=== PATIENT | male | born 1995 | race Caucasian/White ===

== ENCOUNTER 2017-07-06 00:08 | Emergency (ER) | payer OTHER ==
[~2017-07-06] VITALS: Ht 185.4 cm; Wt 106.6 kg
[~2017-07-06 00:08] MED LIST: ANAPROX DS550 MG PO; CEPHALEXIN500 M1 PO; FLEXERIL10 MG PO; KEFLEX500 MG PO; MOTRIN800 MG PO; NKHM; NORCO 5-325 TA1 EACH PO; PEN-VEE K500 MG PO; PREDNISONE10 MG PO; ROBITUSSIN AC 110 ML PO; ULTRAM50 MG PO; VENTOLIN H0.09 MG/AC INH
[2017-07-06] MEDS ORDERED: IBU800 MG PO (01:13)
== END 2017-07-06 01:24 | disposition home or self-care (01) ==
LOC: ED 00:08
DX: R07.81 Pleurodynia (principal); Z79.899 Other long term (current) drug therapy; X50.1XXA Overexertion from prolonged static or awkward postures, initial encounter; Y93.61 Activity, american tackle football; Y92.89 Other specified places as the place of occurrence of the external cause; Y99.9 Unspecified external cause status

== ENCOUNTER 2020-12-16 19:59 | Emergency (ER) | payer OTHER ==
[~2020-12-16] VITALS: Wt 115.7 kg
[~2020-12-16 19:59] MED LIST changes: +IBU800 MG PO
== END 2020-12-16 23:57 | disposition left against medical advice (07) ==
LOC: ED 19:59
DX: M25.531 Pain in right wrist (principal); Z53.21 Procedure and treatment not carried out due to patient leaving prior to being seen by health care provider

== ENCOUNTER 2021-10-18 21:35 | Emergency (ER) | payer OTHER ==
[~2021-10-18] VITALS: Ht 185.4 cm; Wt 102.1 kg
== END 2021-10-18 22:40 | disposition home or self-care (01) ==
LOC: ED 21:35
DX: S05.01XA Injury of conjunctiva and corneal abrasion without foreign body, right eye, initial encounter (principal); S05.02XA Injury of conjunctiva and corneal abrasion without foreign body, left eye, initial encounter; W22.8XXA Striking against or struck by other objects, initial encounter; Y93.89 Activity, other specified; Y92.89 Other specified places as the place of occurrence of the external cause; Y99.8 Other external cause status

== ENCOUNTER 2023-06-20 23:32 | Emergency (ER) | payer OTHER ==
[~2023-06-20] VITALS: Ht 185.4 cm; Wt 102.1 kg
== END 2023-06-21 01:24 | disposition home or self-care (01) ==
LOC: ED 23:32
DX: M67.431 Ganglion, right wrist (principal)

== ENCOUNTER 2023-11-26 22:45 | Emergency (ER) | payer OTHER ==
[~2023-11-26] VITALS: Ht 185.4 cm; Wt 95.3 kg
[2023-11-26] MEDS ORDERED: Ketorolac Tromethamine 30 MG/ML VIAL IM ONE (23:15)
[2023-11-27] MEDS ORDERED: MELOXICAM15 MG PO (00:11)
== END 2023-11-27 00:19 | disposition home or self-care (01) ==
LOC: ED 22:45
DX: M67.431 Ganglion, right wrist (principal)